=== PATIENT | female | born 1970 | race Caucasian/White ===

== ENCOUNTER 2025-03-26 15:51 | Outpatient (CLI) | payer OTHER, SELFPAY ==
--- NOTE | ~2025-03-26 | MM_ITS ---
EXAMINATION: MM scrn christiano implant BI w leidy INDICATION: Asymptomatic, referred for screening mammogram COMPARISON: None available TECHNIQUE: Digital Breast Tomosynthesis CC, MLO, and implant displaced CC and MLO views of Both breas ts were obtained with computer-aided detection to assist in interpretation of the study. FINDINGS: There are scattered areas of fibroglandular density. Bilateral breast Retropectoral Saline implants in place appears intact. No focal dominant mass, architectural distortion, or suspicious microcalcifications are identified. There are no features to suggest malignancy. IMPRESSION: 1. No evidence of malignancy in the breasts. 2. Both breasts Retropectoral Saline implants appears intact. Recommend continued screening mammography BI-RADS 1, NEGATIVE Reviewed, dictated and finalized at location B.
--- OUTSIDE RECORDS SUMMARY | 2025-03-26 16:05 | XMS_ITS | Clinical Summary ---
Author Organization [facility] Address [address] [place] [address] Care Team Providers Care Woodworking Belt Sander Name Role Phone Lakshmi Durbin NP Primary Care Provider [phone] Allergies No known active allergies Medications buPROPion SR (WELLBUTRIN SR) 150 mg 12 hr tablet Take 1 tablet (150 mg total) by mouth 2 (two) times a day Active estradioL (ESTRACE) 1 mg tablet Take 1 tablet (1 mg total) by mouth daily Active ipratropium (ATROVENT) 21 mcg (0.03 %) nasal spray Administer 1-2 sprays into affected nostril(s) 3 (three) times a day 0 Active progesterone (PROMETRIUM) 100 mg capsule take 2 capsule by mouth every day for 12 days in the evening sequentially per 28 day cycle [address] (PROTONIX) 40 mg EC tablet Take 1 tablet (40 mg total) by mouth daily Active triamcinolone (KENALOG) 0.1 % ointmentIndica tions:Dermatit is Apply topically 2 (two) times a day for 10 days 30 g 4 Active fluconazole (DIFLUCAN) 150 mg tabletIndicati ons:Antibiotic -induced yeast infection Take 1 tablet (150 mg total) by mouth once for 1 dose 1 tablet 5 02/27/20 25 amoxicillin-cl avulanate (AUGMENTIN) 875-125 mg per tabletIndicati ons:Dog bite, initial encounter,Loca l skin infection Take 1 tablet by mouth 2 (two) times a day for 10 days 20 tablet 5 03/08/20 25 mupirocin (BACTROBAN) 2 % ointmentIndica tions:Dog bite, initial encounter,Loca l skin infection Apply topically 3 (three) times a day for 10 days 22 g 03/08/20 25 Active Problems No known active problems Encounters Date Type Department Care Team Description 02/26/2025 6:00 PM CDT Office Visit [facility] Care at [address] [address] Zahira Galicia NP Dog bite, initial encounter (Primary Dx); Local skin infection; Antibiotic-induced yeast infection from Last 3 Months Social History Tobacco Use Types Packs/Day Years Used Date Smoking Tobacco: Never Assessed Comments Unknown Sex and Gender Information Value Date Recorded Sex Assigned at Not on file Legal Sex Female 10:59 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 Gender Identity Not on file Sexual Orientation Not on file Obstetrics History Last Filed Vital Signs Vital Sign Reading Time Taken Comments Blood Pressure 119/78 02/26/2025 6:10 PM CDT Pulse 66 02/26/2025 6:10 PM CDT Temperature 36.9 C (98.5 F) 02/26/2025 6:10 PM CDT Respiratory Rate 18 02/26/2025 6:10 PM CDT Oxygen Saturation 98% 02/26/2025 6:10 PM CDT Inhaled Oxygen Concentration - - Weight 65.3 kg (144 lb) 02/26/2025 6:10 PM CDT Height 157.5 cm (5' 2) 04/16/2024 11:13 AM CDT Body Mass Index 26.34 04/16/2024 11:13 AM CDT Plan of Treatment Health Maintenance Due Date Last Done Comments Cervical Cancer Screening 1970 Colon Cancer Screening-Colonoscopy 1970 Depression Screening 1970 Hepatitis C Screening 1970 Hepatitis B Screening 1988 Regular Well Visit/Exam 18-64 1988 Zoster Vaccine (1 of 2) 2020 Breast Cancer Screening-Mammogram 07/22/2021 07/22/2020 Influenza Vaccine (#1) 2025 06/06/2020 DTaP/Tdap/Td Vaccine (3 - Td or Tdap) 06/06/2030 06/06/2020, 06/05/2020 Pneumococcal vaccine <65 Aged Out No longer eligible based on patient's age to complete this topic Procedures Procedure Name Priority Date/Time Associated Diagnosis Comments SCREENING MAMMOGRAM BILATERAL W AKIRA W IMPLANTS Schedule Routine, Read Routine (OP Routine) 07/22/2020 11:13 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 Visit for screening from Last 3 Months or Most Recently Relevant to Health Maintenance Results * Screening Mammogram Bilateral w Akira w Implants (07/22/2020 11:13 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) Anatomical Region Laterality Modality Breast Bilateral Mammography Narrative 08/01/2020 2:50 PM CLARIFIER 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 Mammogram Technique: Bilateral Digital Breast Tomosynthesis, Bilateral C-view 2D Screening mammogram. Views obtained: bilateral craniocaudal and bilateral mediolateral oblique. Computer Aided Detection was performed. Mammogram Findings: No prior imaging studies are available for comparison. There are scattered areas of fibroglandular density. There is no suspicious abnormality in either breast. Impression: There is no mammographic evidence of malignancy. Annual screening mammography is recommended. OVERALL FINAL ASSESSMENT: BI-RADS CATEGORY 1: Negative. Procedure Note Jaqui Colin MD - 08/01/2020 Mammogram Technique: Bilateral Digital Breast Tomosynthesis, Bilateral C-view 2D Screening mammogram. Views obtained: bilateral craniocaudal and bilateral mediolateral oblique. Computer Aided Detection was performed. Mammogram Findings: No prior imaging studies are available for comparison. There are scattered areas of fibroglandular density. There is no suspicious abnormality in either breast. Impression: There is no mammographic evidence of malignancy. Annual screening mammography is recommended. OVERALL FINAL ASSESSMENT: BI-RADS CATEGORY 1: Negative. us Self Screening Mammogram IMG MAMMO PROCEDURES Fi nal Result from Last 3 Months or Most Recently Relevant to Health Maintenance Insurance [employer] [facility] HMO Care Teams Woodworking Belt Sander Relationship Specialty Start Date End Date Lakshmi Durbin NP PCP - General 07/22/20
--- OUTSIDE RECORDS SUMMARY | 2025-03-26 16:05 | XMS_ITS | Clinical Summary ---
Author Organization [facility] Address [address] [place] [address] Care Team Providers Care Oil Tanker Captain Name Role Phone Lakeshia Hammond RN Unavailable Unavailable [facility] Care Provider Source Comments [facility],non-owned Affiliates and Associated Physician Practices is amultiple site organization consisting of ambulatory clinics and hospital sitesin [place], [place], [place] and [place]. This disclosure is being madepursuant to the Care Everywhere program and may not contain all information available regarding this patient. Last updated 18.[facility] Allergies No known active allergies Medications * Be aware that medications may not be up to date on this document. Alwaysverify current medications with the patient. fluticasone furoate (FLONASE SENSIMIST/VERAMY ST) 27.5 MCG/SPRAY nasal spray [place] 2 Inhalers into each nostril 2 times daily Active cetirizine (ZYRTEC) 10 MG tablet Take 10 mg by mouth once daily Active buPROPion SR 12hr (WELLBUTRIN-SR) 150 MG tablet Take 150 mg by mouth 2 times daily Active pantoprazole EC (PROTONIX) 40 MG tablet Take 40 mg by mouth once daily Active azelastine (ASTELIN) 0.1 % nasal sprayIndications :Chronic rhinitis,Seasona l allergic rhinitis, unspecified trigger [place] 1 spray into each nostril 2 times daily 3 Inhaler 4 0 Active ipratropium (ATROVENT) 0.03 % nasal sprayIndications :Chronic rhinitis,Seasona l allergic rhinitis, unspecified trigger [place] 1-2 sprays into each nostril 3 times daily 90 mL 4 0 Active Active Problems Problem Noted Date Diagnosed Date Irregular menses 03/16/2017 Restless legs syndrome (RLS) 03/16/2017 Screening for hyperlipidemia 03/16/2017 Upper GI bleed 02/11/2014 PTSD (post-traumatic stress disorder) 02/11/2014 Immunizations Immunization Administration Dates Next Due DTaP VACCINE IM (6wk-6yrs) 06/06/2020 INFLUENZA VACCINE 06/06/2020 Family History Medical History Relation Name Comments Down's Syndrome Brother Cancer - Lung Maternal Aunt Alcohol abuse Mother Aneurysm Mother brain Diabetes - Type 2 Paternal Grandmother Relation Name Status Comments Brother (Age 32) Father Alive Maternal Aunt Alive Mother Alive Paternal Grandmother Sister 1 Alive Sister 2 Alive Son 1 Alive Son 2 Alive Social History Tobacco Use Types Packs/Day Years Used Date Smoking Tobacco: Former Cigarettes Smokeless Tobacco: Never Tobacco Cessation:Ready to Q uit: No; Counseling Given: Yes Comments:wellbutrin in past helpful Alcohol Use Standard Drinks/Week Comments Yes 0 (1 standard drink = 0.6 oz pur e alcohol) Rare; 4-5 time a year Comments No Sex and Gender Information Value Date Recorded Sex Assigned at Not on file Legal Sex Female 7:15 PM CDT Gender Identity Not on file Sexual Orientation Not on file Last Filed Vital Signs Vital Sign Reading Time Taken Comments Blood Pressure 110/76 11/08/2017 8:21 AM CDT Pulse 88 11/08/2017 8:21 AM CDT Temperature 37.1 C (98.7 F) 11/08/2017 8:21 AM CDT Respiratory Rate 14 11/08/2017 8:21 AM CDT Oxygen Saturation 99% 11/08/2017 8:21 AM CDT Inhaled Oxygen Concentration - - Weight 61.2 kg (135 lb) 06/20/2020 8:34 AM CDT Height 157.5 cm (5' 2) 06/20/2020 8:34 AM CDT Body Mass Index 24.69 06/20/2020 8:34 AM CDT Plan of Treatment Health Maintenance Due Date Last Done Comments COLOGUARD (AGES 45-75) - COL ON CA SCREENING 1970 COLON MONITORING 1970 COLONOSCOPY - COLON CA SCREENING 1970 CT COLONOGRAPHY - COLON CA SCREENING 1970 Colorectal Cancer Screening 1970 FIT - COLON CA SCREENING 1970 FLEX SIG - COLON CA SCREENING 1970 LIPID TESTING 1970 MAMMOGRAM 1970 HIV SCREENING 1985 HEPATITIS C SCREENING 08/02/1988 HEPATITIS B VACCINE (1 of 3 - 19+ 3-dose series) 1989 PNEUMOCOCCAL VACCINE 50+ (1 of 1 - PCV) 2020 ZOSTER VACCINE (1 of 2) 2020 COVID-19 VACCINE (1 - 2023-2 5 season) 2024 DEPRESSION SCREENING 08/23/2024 INFLUENZA VACCINE (#1) 2025 06/06/2020 DTAP/TDAP/TD VACCINES (2 - Tdap) 06/06/2030 06/06/20 20 HIB VACCINE Aged Out No longer eligi ble based on patient's age to complete this topic HPV VACCINE Aged Out No longer eligi ble based on patient's age to complete this topic MENINGOCOCCAL (Group B) VACC INE SHARED DECISION-MAKING Aged Out No longer eligibl e based on patient's age to complete this topic MENINGOCOCCAL GROUPS A/C/Y/W VACCINE Aged Out No longer eligible b ased on patient's age to complete this topic Insurance [employer] [id number] [facility] Advance Directives * Full Code (Latest Code Status on File) Date Activated Date Inactivated Comments 02/11/2014 12:37 AM 02/12/2014 7:16 PM Care Teams Oil Tanker Captain Relationship Specialty Start Date End Date [facility] [address] [place] [address] PCP - General Paving Contractor 06/20/20 Lakeshia Hammond, ships equipment engineer 02/12/14
--- OUTSIDE RECORDS SUMMARY | 2025-03-26 16:05 | XMS_ITS | Referral Summary ---
Author Organization [facility] Address [address] [place] [id number] Care Team Providers Care Social Media Director Name Role Phone Lakshmi Durbin NP Primary Care Provider [phone] Encounters Date Type Department Care Team Description 02/26/2025 6:00 PM CDT Office Visit [facility] Care at [address] [address] Zahira Galicia NP Dog bite, initial encounter (Primary Dx); Local skin infection; Antibiotic-induced yeast infection from Last 3 Months Allergies No known active allergies Medications buPROPion [...] a day for 10 days 22 g 5 03/08/20 25 Active Problems No known active problems Social History Tobacco Use Types Packs/Day Years Used Date Smoking Tobacco: Never Assessed Comments Unknown Sex and Gender Information Value Date Recorded Sex Assigned at Not on file Legal Sex Female 10:59 AM C JAVA DEVELOPER Gender Identity Not on file Sexual Orientation [...] 04/16/2024 11:13 AM CDT Plan of Treatment Not on file Procedures Procedure Name Priority Date/Time Associated Diagnosis Comments SCREENING MAMMOGRAM BILATERAL W AKIRA W IMPLANTS Schedule Routine, Read Routine (OP Routine) 07/22/2020 11:13 AM C JAVA DEVELOPER Visit for screening from Last 3 Months or Most Recently Relevant to Health Maintenance Results * Screening Mammogram Bilateral w Akira w Implants (07/22/2020 11:13 AM C JAVA DEVELOPER) Anatomical Region Laterality Modality Breast Bilateral Mammography Narrative 08/01/2020 2:50 PM C JAVA DEVELOPER Mammogram Technique: Bilateral Digital Breast Tomosynthesis, Bilateral [...] Most Recently Relevant to Health Maintenance Insurance [facility] [address] HMO Care Teams Social Media Director Relationship Specialty Start Date End Date Lakshmi Durbin NP [facility] - General 07/22/20
--- OUTSIDE RECORDS SUMMARY | 2025-03-26 16:05 | XMS_ITS | Clinical Summary ---
Author Organization [facility] Address [address] [place] [address] Care Team Providers Care [employer] Wireman Name Role Phone Jesusita Barreto DO Primary Care Provider [phone] Allergies No known active allergies Medications estradiol (ESTRACE) 1 MG tabletIndicatio ns:Hormone replacement therapy (postmenopausal ) Take 1 tablet (1 mg total) by mouth daily. 90 tablet 03/15/20 25 025 Active progesterone (PROMETRIUM) 100 MG capsuleIndicati ons:Hormone replacement therapy (postmenopausal ) Take 1 capsule (100 mg total) by mouth daily. 90 capsule 03/15/20 25 025 Active fluticasone furoate (VERAMYST) 27.5 MCG/SPRAY SuspensionIndic ations:Chronic rhinitis 1 spray by Nasal route as needed. 9.1 mL 03/15/20 25 Active estradiol (ESTRACE) 1 MG tablet Take 1 tablet (1 mg total) by mouth daily. 04/05/20 Discontinu ed(Reorder ) fluticasone furoate (VERAMYST) 27.5 MCG/SPRAY Suspension 2 Inhalers by Nasal route as needed. 025 Discontinu ed(Reorder ) progesterone (PROMETRIUM) 100 MG capsule take 2 capsule by mouth every day for 12 days in the evening sequentially per 28 day cycle 01/21/20 24 Discontinu ed(Reorder ) fluconazole (DIFLUCAN) 150 MG tabletIndicatio ns:Vaginal yeast infection Take 1 tablet (150 mg total) by mouth once for 1 dose. 1 tablet 07/ 025 Active Problems Problem Noted Date Diagnosed Date Cervical cancer screening 03/15/2025 Overview (03/15/2025): Pap was reportedly completed December 2020 with cotesting negative and next Pap due December 2025. Assessment & Plan (03/15/2025 7:17 AM CDT): Was reportedly completed December 2020 with cotesting negative and next Pap due December 2025. Awaiting pathology report. Encounter for screening mamm ogram for malignant neoplasm of breast 03/15/2025 Assessment & Plan (03/15/2025 2:04 PM CDT): Per report, last mammogram 07/22/2020 BI-RADS 1. Patient has breast implants. Implant screening mammogram ordered to [facility] for patient to complete. Colon cancer screening 03/15/2025 Assessment & Plan (03/15/2025 7:21 AM CDT): Per report, Cologuard was completed and - December 2022 next due December 2025. Will request records. Sravanthi Willingham [address] [address] [email or web address] Dog bite of ankle, right, subsequent encounter 0 03/15/2025 Overview (03/15/2025): Images from the original note were not included. 03/15/2025: She reports she went to urgent care on Wednesday night 02/26/2025 after her dog, a garnett room worker, bit her right leg 02/24/2025 as dog was distressed during firework display. She reports she thought the wound was infected when she went to urgent care. She reports was given an oral prescription of amoxicillin and a topical prescription. She reports she completed oral prescription. She reports she was told to use topical prescription for 10 days. She reports wound is healing. Assessment & Plan (03/15/2025 2:09 PM CDT): Reviewed documentation from [facility] [place] 02/26/2025. Last tetanus 06/06/2020. Wound is clean, dry without evidence of infection. Healing appropriately. Continue to monitor. Patient can keep wound moist with Aquaphor to help with scar formation. Vaginal yeast infection 03/15/2025 Overview (03/15/2025): 03/15/2025: She reports she took a Diflucan 03/08/2025 after finishing antibiotic prescription for her dog bite. She reports she is still having some vaginal burning. Assessment & Plan (03/15/2025 2:02 PM CDT): Patient can take another Diflucan 150 mg once. Excessive daytime sleepiness 03/15/2025 Overview (03/15/2025): 03/15/2025: She reports she feels tired throughout the day. She reports she sleeps nightly from 10 PM to 6 AM after taking melatonin and magnesium. She reports in the morning she drinks coffee which can help her feel more energy however in the afternoon she feels exhausted by 4 PM and feels like she can take a nap. She reports this is not a recent occurrence and has been going on for many months. She reports she is also gained weight after going through menopause and previously for most of her life was around 110 pounds. She also endorses sometimes having a headache in the morning. She reports she has never been told that she snores. She reports she does not have difficulty falling or staying asleep. 03/15/2025 1:45 PM [facility] AMB EPWORTH SCORE Total score 12 Assessment & Plan (03/15/2025 2:12 PM CDT): Patient reported high chance of dozing off while sitting and reading, watching television, lying down in the afternoon when circumstances permit and riding in a car for 1 hour without a break as a passenger. Home WatchPAT ordered to evaluate for sleep disordered breathing. Depression screening negative 03/15/2025 Overview (03/15/2025): PHQ-2 Score PHQ-2 Score: 0 PHQ-9: 03/15/2025 1:40 PM 06/06/2024 4:19 PM PHQ2/PHQ 9 DEPRESSION SCREEN QUESTIONAIRE Little interest or pleasure in doing things Not at all Not at all Feeling down, depressed, or hopeless Not at all Not at all Patient Health Questionnaire-2 Score 0 0 Trouble falling or staying asleep, or sleeping too much Not at all Feeling tired or having little energy Over half Poor appetite or overeating Over half Feeling bad about yourself - or that you are a failure or have let yourself or your family down Not at all Trouble concentrating on things, such as reading the newspaper or watching television Not at all Moving or speaking so slowly that other people could have noticed? Or the opposite - being so fidgety or restless that you have been moving around a lot more than usual. Not at all Thoughts that you would be better off or hurting yourself in some way Not at all Patient Health Questionnaire-9 Score 4 How difficult have these problems made it for you to do your work, take care of things at home, or get along with other people? Not difficult at all Assessment & Plan (03/15/2025 2:10 PM CDT): Depression screening negative. Discussed with patient. Positive answers related to tiredness-see under excessive daytime sleepiness. History of seborrheic keratosis 07/24/2024 Need for shingles vaccine 07/07/2024 Overview (07/07/2024): Patient reports having had chickenpox as a child. Denies having shingles previously. Has not previously had shingles vaccine. She is not interested in shingles vaccine at this time. Assessment & Plan (07/07/2024 5:01 PM FINANCIAL COMPLIANCE EXAMINER): She is counseled that she can get shingles vaccine after having shingles. She is counseled at length on presentation of shingles and potential sequelae. She is instructed if she experiences the vesicular rash on the side of her body is extremely painful to present immediately so we can initiate antiviral treatment. Left upper quadrant abdominal pain 07/07/2024 Overview (07/07/2024): She reports in the last couple weeks she took Mucinex and felt an aching in her stomach like an ulcer was forming. She reports she has had increase in belching. She reports is progressively getting better however continues to have intermittent, waxing and waning dull, irritating pain. She describes the throbbing pain like a headache. She reports he did have increased symptoms after eating toasted ravioli 1 day which she attributes to the marinara sauce and 1 day after having salsa. She has a history of peptic ulcer that perforated and required exploratory abdominal surgery. Assessment & Plan (07/07/2024 5:08 PM FINANCIAL COMPLIANCE EXAMINER): No red flags are present. Suspect patient may have some gastric irritation/gastritis potentially from multiple antihistamines and Mucinex. Discussed with patient that we could treat with [id number] medication, prescription medication, evaluate for Helicobacter pylori and/or watch and wait and continue to monitor. Patient is agreeable to continue to monitor without any specific treatment at this time. If patient's symptoms fail to improve and/or significantly worsens, she is to notify and return to be evaluated. History of peptic ulcer 07/07/2024 Overview (07/07/2024): Perforated peptic ulcer and subsequent exploratory abdominal surgery 2010 Upper endoscopy 2018 Uses marijuana 06/06/2024 Hormone replacement therapy (postmenopausal) Overview (03/15/2025): 07/07/2024: Taking estradiol 1 mg daily and 100 mg of progesterone for the first 10 days of the month. She reports she has been on hormone replacement therapy for approximately 4 years. She has been taking 100 mg of progesterone for the first 10 days/month. 03/15/2025: She is requesting refill of progesterone and estradiol. Assessment & Plan (03/15/2025 2:04 PM CDT): Refill estradiol 1 mg daily and progesterone 100 mg daily to patient's pharmacy. Requesting records regarding patient's previous cervical cancer screening which was reportedly completed in December 2019. Patient is overdue for mammogram as last mammogram was completed in June 2020. Implant screening mammogram ordered to [facility] for patient to complete. Assessment & Plan (07/07/2024 4:57 PM FINANCIAL COMPLIANCE EXAMINER): Patient should be taking progesterone daily as well as estradiol. She may be a good candidate for combination medication such as Bijuva. Hot flashes, menopausal 06/06/2024 Overview (03/15/2025): 06/06/2024: Patient reports hot flashes are improved since being on hormonal therapy however she continues to have them. Assessment & Plan (07/07/2024 4:59 PM FINANCIAL COMPLIANCE EXAMINER): We discussed Veozah medication that may be helpful in improving patient's frequency and number of hot flashes as they have not completely resolved on hormone replacement therapy. This is a nonhormonal option. Chronic rhinitis 06/06/2024 Overview (03/15/2025): 03/15/2025: She reports she is been experiencing a lot of nasal congestion and runny nose. She is requesting refill of fluticasone nasal spray. She reports she is also been using Afrin daily. Assessment & Plan (03/15/2025 2:03 PM CDT): Recommend patient discontinue daily/regular use of Afrin. Refilled fluticasone nasal spray to patient's pharmacy. Recommend patient use nasal saline rinses daily and counseled regarding the use. Patient was explicitly instructed to use distilled water if she makes nasal saline at home for [place] pot. History of anemia 06/06/2024 Overview (07/07/2024): Currently resolved Cigarette nicotine dependence in remission 06/06 PTSD (post-traumatic stress disorder) 02/11/2014 Resolved Problems Problem Noted Date Diagnosed Date Resolved Date Changing skin lesion 07/07/2024 024 Overview (07/07/2024): Patient reports she has had skin lesion on her left leg near her panty line for many years however has been changing. She reports she can feel the texture while she is showering. She cannot easily visualize the skin lesion. Assessment & Plan (07/07/2024 5:14 PM FINANCIAL COMPLIANCE EXAMINER): Since skin lesion is changing and due to size, I suggest biopsy as I am unsure if lesion is benign or more concerning. Also do to location, patient cannot easily visualize a skin lesion in order to monitor. Restless legs syndrome (RLS) 03/16/2017 06/06/2024 Upper GI bleed 02/11/2014 06/06/2024 Encounters Date Type Department Care Team Description 03/15/2025 1:00 PM CDT Office Visit [facility] [place] [address] [place] [address] Jesusita Barreto, DO Animal Bite (Pt states she was bite by a dog February 25 on the right lower leg on ankle. /) 03/15/2025 Travel from Last 3 Months Immunizations Immunization Administration Dates Next Due Dtap (Acel-Immune) 06/06/2020 Influenza (Generic) 06/06/2020 Family History Medical History Relation Comments Down syndrome Brother Heart Disease Brother Prostate Cancer Father in 2017 Lung Cancer Maternal Aunt Was not a smoker Alcohol Abuse Mother Aneurysm Mother Bleeding, brain Arthritis Mother Drug Abuse Mother Opiates Stroke Mother Alcohol Abuse Paternal Grandfather Diabetes Paternal Grandmother Degenerative Disc Disease Sister 1 No Known Problems Sister 2 No Known Problems Son 1 No Known Problems Son 2 Relation Status Comments Brother Father Maternal Aunt Maternal Grandfather Maternal Grandmother Mother Paternal Grandfather Paternal Grandmother Sister 1 Alive Sister 2 Alive Son 1 Alive Son 2 Alive Social History Tobacco Use Types Packs/Day Years Used Date Smoking Tobacco: Former Cigarettes 0.5 36 1 984 - 08/18/2019 Passive Smoke Exposure: Past Smokeless Tobacco: Never Tobacco Cessation:Counseling Given: No Comments:Quit during pregnancies. E-cigarettes for 6 months with nicotine. Alcohol Use Standard Drinks/Week Comments Yes 0 (1 standard drink = 0.6 oz pure alcohol) Rarely s he reports a few times a year AUDIT-C Answer Date Recorded Q1: How often do you have a drink containing alc ohol? Monthly or less 06/06/2024 Q2: How many drinks containi ng alcohol do you have on a typical day when you are drinking? 1 or 2 06/06/2024 Q3: How often do you have si x or more drinks on one occasion? Never 06/06/2024 PHQ-2 Answer Date Recorded Patient Health Questionnaire-2 Score 0 03/15/2025 Comments No Sex and Gender Information Value Date Recorded Sex Assigned at Female 03/15/2025 1:11 PM CDT Legal Sex Female 12:59 PM CDT Gender Identity Female 03/15/2025 1:11 PM CDT Sexual Orientation Not on file Last Filed Vital Signs Vital Sign Reading Time Taken Comments Blood Pressure 119/67 03/15/2025 1:18 PM CDT Pulse 66 03/15/2025 1:18 PM CDT Temperature 35.9 C (96.7 F) 03/15/2025 1:18 PM CDT Respiratory Rate 16 03/15/2025 1:18 PM CDT Oxygen Saturation 95% 03/15/2025 1:18 PM CDT Inhaled Oxygen Concentration - - Weight 64 kg (141 lb) 03/15/2025 1:18 PM CDT Height 157.5 cm (5' 2) 03/15/2025 1:18 PM CDT Body Mass Index 25.79 03/15/2025 1:18 PM CDT Plan of Treatment Health Maintenance Due Date Last Done Comments Cervical Cancer Screening Pa p Smear (Age 30 to 64) Every 3 Years 1970 Hepatitis B Vaccines (1 of 3 - 19+ 3-dose series) 1989 Cervical Cancer Screening Pa p with HPV Testing (Age 30 to 64) Every 5 Years 2000 Cervical Cancer Screening with HPV 2000 Zoster Vaccines (1 of 2) 2020 Mammogram Screening 07/22/2022 07/22/2020 Annual Physical 06/06/2025 06/06/2024 Colorectal Cancer Screening FIT-DNA (3 Years) 02/03/2026 02/03/2023, 02/03/2023 COVID-19 Vaccine (1 - 2023-2 5 season) 2026 Postponed from 04/23 (Patient Refused) Pneumococcal Vaccine: 50+ Years (1 of 1 - PCV) 03/15/2026 Postponed from 07/23 (Patient Refused) DTaP, Tdap and Td Vaccines ( 2 - Tdap) 06/06/2030 06/06/2020 Hepatitis C Completed 06/20/2024 PHQ-2 (Physician [place]) Completed 03/15/2025 Meningococcal B Vaccine Aged Out No l onger eligible based on patient's age to complete this topic Meningococcal Vaccine Aged Out No roque margarita eligible based on patient's age to complete this topic RSV Immunizations Under 20 Months Aged Out No longer eligible b ased on patient's age to complete this topic Procedures Procedure Name Priority Date/Time Associated Diagnosis Comments HEPATITIS C ANTIBODY Routine 06/20/2024 7:12 AM CDT Encounter for hepatitis C screening test for low risk patient COLOGUARD (SCAN ORDER) Routine 02/03/2023 from Last 3 Months or Most Recently Relevant to Health Maintenance Results * HEPATITIS C ANTIBODY (06/20/2024 7:12 AM CDT) HEPATITIS C AB NON-REACTI VE NON-REACT ROMAN 06/20/2024 6:40 PM CDT [facility] Comment: ANTIBODIES TO HCV NOT DETECTED. DOES NOT EXCLUDE THE POSSIBILITY OF EXPOSURE TO HCV. 06/20/2024 7:12 AM CDT Jesusita Barreto DO LABORATORY Final Result Performing Organization Address City/[facility]/ZIP Co de Phone Number [facility] [address] [place] [address], [phone] * COLOGUARD (02/03/2023) STOOL 02/03/2023 [facility] Scanned SCANNING Final Resu lt [facility] from Last 3 Months or Most Recently Relevant to Health Maintenance Insurance [employer] Care Teams [employer] Wireman Relationship Specialty Start Date End Date Jesusita Barreto DO [address] [facility] [address] [place] [address] PCP - General FAMILY PRACTICE 05/26/24
== END 2025-03-26 15:52 | disposition home or self-care (01) ==
LOC: ANHIMG 16:03
PROVIDERS: PCP Family Medicine; Visit Provider Family Medicine
DX: Z12.31 Encounter for screening mammogram for malignant neoplasm of breast (principal); Z98.82 Breast implant status
CPT/HCPCS: 77063; 77067